=== PATIENT | male | born 1990 | race Two or more races ===

== ENCOUNTER → 2022-08-02 | Outpatient (CLI) | payer OTHER | LOC: M RAD 12:37 | PROVIDERS: ATTEND Physician Assistant | DX: R22.42 Localized swelling, mass and lump, left lower limb (principal) ==

== ENCOUNTER 2022-09-16 10:45 | Day surgery (SDC) | payer OTHER ==
[~2022-09-16] VITALS: Ht 185.4 cm; Wt 106.1 kg
[~2022-09-16 10:45] MED LIST: LIDOCAINE 2% 100MG/5ML SDV (FOR ANES.) As Ordered ONE; NS 1,000 ML IV ONE; propofoL 200 MG/20 ML VIAL As Ordered ONE
[2022-09-16 13:47] VITALS: BP 125/67
== END 2022-09-16 14:16 | disposition home or self-care (01) ==
LOC: M OPP 10:45
PROVIDERS: ATTEND Internal Medicine Gastroenterology
DX: K62.5 Hemorrhage of anus and rectum (principal); K64.1 Second degree hemorrhoids; B20 Human immunodeficiency virus [HIV] disease; Z86.14 Personal history of Methicillin resistant Staphylococcus aureus infection